=== PATIENT | male | born 1960 | race Caucasian/White ===

== ENCOUNTER 2017-01-02 05:18 | Day surgery (SDC) | payer MEDICAID ==
[~2017-01-02 05:18] MED LIST: ACETAMINOPHEN 1,000 MG/100 ML BTL IV ONE
[2017-01-02] MEDS ORDERED: ACETAMINOPHEN 1,000 MG/100 ML BTL IV ONE (06:00)
[2017-01-02] MEDS ORDERED: ROPIVACAINE HCL (NAROPIN) /PF 5MG/ML 20ML VIAL IV ONE ×2 (11:34→13:56)
[2017-01-02] MEDS ORDERED: DEXAMETHASONE 4 MG/ML 1ML VIAL IVP ONE (11:34)
[2017-01-02] MEDS ORDERED: PROPOFOL 10 MG/ML VIAL IV ONE (13:56)
[2017-01-02] MEDS ORDERED: FENTANYL PF 100MCG/2ML VIAL IV ONE (13:56)
[2017-01-02] MEDS ORDERED: MIDAZOLAM HCL 2MG/2ML VIAL IV ONE (13:56)
[2017-01-02] MEDS ORDERED: LIDOCAINE 2% MDV (20MG/ML) 20ML VIAL IV ONE (13:56)
--- NOTE | 2017-01-04 10:55 | Operative Note ---
DATE OF SURGERY: 01/02/2017 Surgeon: Jaquan Ness DO Referring physician: Jasmin Barney NP PREOPERATIVE DIAGNOSIS: Dequervain's stenosing tenosynovitis of the right wrist. POSTOPERATIVE DIAGNOSIS: Dequervain's stenosing tenosynovitis of the right wrist. OPERATION: Dequervain's fasciotomy of the right wrist using a 3.5 loupe magnification. Anesthesia: Assisted regional anesthetic. PROCEDURE: This 56-year-old male was taken to the operating room and placed in the supine position on the operating room table. Assisted regional anesthetic was used and the right upper extremity was elevated, prepped with Hibiclens, and draped in the usual sterile fashion. It was exsanguinated and the tourniquet inflated to 250 mmHg. A transfer incision was made 1 cm proximal to the tip of the radial styloid and the radial aspect of the right wrist. Dissection carried down through the skin and subcutaneous tissue. Hemostasis obtained with the electrocautery. The patient's superficial radial nerve was identified and retracted safely. The proximal edge of the first dorsal compartment was easily identified and excised from proximal to distal with the abductor longus under direct vision. The extensor brevis was seen to be in a separate septated compartment and this was also divided and freed. Marked swelling of the tenosynovium and tendon were present within the first dorsal compartment. Once this was decompressed, the thumb freely moved without any impingement. The tendons themselves, other than the swelling, otherwise appeared to be intact and normal. The wound was irrigated and the subcutaneous tissue closed with 4-0 Vicryl, the skin with a running 4-0 nylon suture. Sterile dressings were applied and the patient was taken to the recovery room in satisfactory condition. GROSS PATHOLOGY: This patient demonstrated marked thickening of the abductor longus of the right thumb. The extensor brevis seemed to be in a separate septated compartment. The patient tolerated the operative procedure well. LIZZETTE
== END 2017-01-02 08:00 | disposition home or self-care (01) ==
LOC: SUR 05:18
PROVIDERS: ATTEND Orthopaedic Surgery
DX: M65.4 Radial styloid tenosynovitis [de Quervain] (principal); J44.9 Chronic obstructive pulmonary disease, unspecified; F17.200 Nicotine dependence, unspecified, uncomplicated
CPT/HCPCS: 25020; 01810; 64450; J3010; J2795; 76942

== ENCOUNTER 2017-02-14 07:26 | Day surgery (SDC) | payer MEDICAID ==
[2017-02-14] MEDS ORDERED: ACETAMINOPHEN W/ CODEINE 300MG/30MG TABLET PO ONE (13:30)
[2017-02-14] MEDS ORDERED: FENTANYL PF 100MCG/2ML VIAL IV ONE ×2 (13:30)
[2017-02-14] MEDS ORDERED: LIDOCAINE 2% MDV (20MG/ML) 20ML VIAL IV ONE (13:40)
[2017-02-14] MEDS ORDERED: PROPOFOL 10 MG/ML VIAL IV ONE (13:40)
[2017-02-14] MEDS ORDERED: MEPERIDINE 50 MG/1 ML VIAL IVP ONE (13:40)
[2017-02-14] MEDS ORDERED: SEVOFLURANE 250 ML INH ONE (13:40)
--- NOTE | 2017-02-19 14:34 | Operative Note ---
DATE OF SURGERY: 02/14/2017 Surgeon: Jaquan Ness DO PREOPERATIVE DIAGNOSIS: Carpal tunnel syndrome of the right wrist. POSTOPERATIVE DIAGNOSIS: Carpal tunnel syndrome of the right wrist. OPERATION: Decompression of right median nerve at the wrist using 3.5 loop magnification. DESCRIPTION OF PROCEDURE: This 56-year-old male was taken to the operating room and placed in the supine position on the operating room table where general anesthesia was induced. The right upper extremity was elevated. It was prepped with Hibiclens and draped in the usual sterile fashion. It was exsanguinated and tourniquet inflated to 250 mmHg. A palmar incision was utilized following the hypothenar crease from the level of the base of the webspace of the thumb to the flexor crease of the wrist. Dissection was carried down through the skin and subcutaneous tissue. Hemostasis obtained with the electrocautery. Palmar fascia was divided in line with the skin incision to expose the flexor retinaculum. This was punctured, split to its proximal margin. With the contents of the carpal tunnel under direct vision, the transverse carpal ligament was transected along its ulnar border. The radial flap was raised to expose the entire median nerve under the transverse carpal ligament. The recurrent motor branch of the median nerve was seen to be normal. Some mild hyperemia of the nerve and mild hourglass deformity of the nerve also was identified. The tourniquet was released and hemostasis obtained with the electrocautery. The wound closed with interrupted 6-0 nylon suture. Sterile dressings were applied with plaster splint immobilization with the wrist in slight dorsiflexion and the thumb in an adducted position. The patient was then taken to the recovery room in satisfactory condition. LIZZETTE
== END 2017-02-14 10:35 | disposition home or self-care (01) ==
LOC: SUR 07:26
PROVIDERS: ATTEND Orthopaedic Surgery
DX: G56.01 Carpal tunnel syndrome, right upper limb (principal); J44.9 Chronic obstructive pulmonary disease, unspecified; F17.200 Nicotine dependence, unspecified, uncomplicated
CPT/HCPCS: 64721; 01810; J3010

== ENCOUNTER 2019-04-20 06:43 | Emergency (ER) | payer MEDICAID ==
[2019-04-20] MEDS ORDERED: 0.9 % SODIUM CHLORIDE 1,000 ML BAG IV ONE (07:05)
[2019-04-20] MEDS ORDERED: ACETAMINOPHEN 1,000 MG/100 ML BTL IVPB ONE (07:05)
[2019-04-20] MEDS ORDERED: METHYLPREDNISOLONE PF 125MG/VIAL IVP ONE (07:06)
--- NOTE | 2019-04-20 07:07 | Emergency Department Record ---
History of Present Illness - General Chief Complaint: Headache Migraine Stated Complaint: PAIN AND BURNING IN HEAD Time Seen by Provider: 04/20/19 07:05 Source: Patient Mode of Arrival: Ambulatory Limitations: No limitations - History of Present Illness Initial Comments: 58 yo male presents with a left sided headache since 5am yesterday morning. The headache is located on the left upper parietal area. The head is mild and did not start severe. The headache has present all day yesterday and still present when he woke up this morning. He points to a very specific area of location. He can push on an area in the scalp that is sore to touch and seems to make the pain worse. The headache itself is mild. No rash. No nausea, no vomiting, no dizziness, no neck pain, no weakness or coordination changes. This morning he noted an area of change in his vision. The area is "C" shaped in both eyes. The vision outside of the C is clear. The area of the C has small areas of blurriness or squiggly lines. No sense of vision loss. Inside the C is clear. It is equal in both eyes. 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 No double vision. PCP is Francisca Dial MD Complaint: Headache -: Hour(s) (26) Onset Description: Gradual, Awoke with symptoms Location: Left Severity: Moderate Severity scale (1-10): 8 Quality: Sharp Consistency: Constant Improves With: Nothing Worsens With: None Context: Other (awoke with the symptoms) Associated Symptoms: [place] Other Symptoms: Other Treatments Prior to Arrival: Other - Symptoms of Stroke Onset of Symptoms Date: 04/19/19 Onset of Symptoms Time: 05:00 Symptom Onset Unknown: Yes - Related Data Home Medications Medication Instructions Recorded Confirmed Last Taken Albuterol Sulfate [Proventil Hfa] 1 puff INH BID PRN 04/20/19 04/20/19 03/29/19 Previous Rx's Medication Instructions Recorded Methylprednisolone [Medrol Dose 4 mg PO DAILY #1 tab.ds.pk 04/20/19 Pack] Allergies Allergy/AdvReac Type Severity Reaction Status Date / Time lincomycin HCl Allergy Severe ANAPHYLAXIS Verified 04/20/19 06:57 [From Lincocin] Travel Screening - Travel/Exposure Within Last 30 Days Have you traveled within the last 30 days?: No - Travel Symptoms Symptom Screening: None Review of Systems Constitutional: Denies: Chills, Fever, Malaise, Weakness Eyes: Reports: Vision change. Denies: Eye discharge, Eye pain, Photophobia ENT: Denies: Congestion, Throat pain Respiratory: Denies: Cough, Dyspnea Cardiovascular: Denies: Chest pain, Palpitations, Syncope Endocrine: Denies: Fatigue Gastrointestinal: Denies: Abdominal pain, Diarrhea, Nausea, Vomiting Genitourinary: Denies: Dysuria, Frequency, Hematuria Musculoskeletal: Denies: Arthralgia, Back pain, Joint swelling, Myalgia Skin: Denies: Bruising, Change in color, Rash Neurological: Reports: Headache. Denies: Abnormal gait, Confusion, Numbness, Paresthesias, Seizure, Tingling, Tremors, Vertigo, Weakness Psychiatric: Denies: Anxiety Hematological/Lymphatic: Denies: Easy bleeding, Easy bruising Past Medical History - SOCIAL HISTORY Smoking Status: Current every day smoker Alcohol Use: None Drug Use: None - RESPIRATORY Hx Respiratory Disorders: Yes Hx Asthma: Yes Hx Bronchitis: No Hx COPD: Yes Hx Pneumonia: Yes Comment:: seasonal allergies; - CARDIOVASCULAR Hx Cardio Disorders: Yes Comment:: high cholestrol - NEURO Hx Neuro Disorders: Yes Hx of Neuromuscular Disease: Yes (Spearfish Palsy;) Comment:: crps (RSD) left arm mostly;/ bells palsy Left eye droop, left mouth droop - GI Hx GI Disorders: Yes Hx Hepatitis/Jaundice: Yes (hepatitis in 80's; was tested for A,B,C--all negative) Hx Ulcer: Yes - Hx Genitourinary Disorders: No - ENDOCRINE Hx Endocrine Disorders: No - MUSCULOSKELETAL Hx Musculoskeletal Disorders: Yes Hx Back Injury: Yes - PSYCH Hx Psych Problems: Yes Hx Behavior Problems: Yes Comment:: sarcastic wit - HEMATOLOGY/ONCOLOGY Hx Hematology/Oncology Disorders: No Family Medical History Any Significant Family History?: Yes *Cancer Comment: great uncle on maternal side Hx Diabetes: Father, Mother Hx Heart Disease: Mother Hx HTN: Mother Hx Resp Disorders: Father, Mother Hx Stroke: Grandparents Physical Exam - General General Appearance: Alert, Oriented x3, Cooperative, No acute distress Limitations: No limitations - Head Head exam: Atraumatic, Normal inspection Head exam detail: negative: Abrasion, Contusion, Hematoma, Laceration - Eye Eye exam: Normal appearance, PERRL, EOMI. negative: Conjunctival injection, Nystagmus, Periorbital swelling, Periorbital tenderness, Scleral icterus Pupils: Normal accommodation. negative: Irregular, Unequal - ENT ENT exam: Normal exam, Mucous membranes moist Ear exam: Normal external inspection Nasal Exam: Normal inspection Mouth exam: Normal external inspection - Neck Neck exam: Normal inspection - Respiratory Respiratory exam: Normal lung sounds bilaterally. negative: Respiratory distress - Cardiovascular Cardiovascular Exam: Regular rate, Normal rhythm, Normal heart sounds Peripheral Pulses: 2+: Radial (R), Radial (L) - GI/Abdominal GI/Abdominal exam: Soft. negative: Tenderness - Rectal Rectal exam: Deferred - exam: Deferred - Extremities Extremities exam: Normal inspection. negative: Tenderness - Back Back exam: Reports: Normal inspection - Neurological Neurological exam: Alert, Normal gait, Oriented X3, Reflexes normal. negative: Abnormal gait, Altered, CN II-XII intact (Mild left facial weakness that is chronic, stable at baseline) - Psychiatric Psychiatric exam: Normal affect, Normal mood. negative: Agitated, Anxious - Skin Skin exam: Dry, Intact, Normal color, Warm Course Vital Signs 04/20/19 06:49 Temperature 97.4 F L Pulse Rate 68 Respiratory 16 Rate Blood Pressure 140/83 Pulse Ox 100 - Reevaluation(s) Reevaluation #1: 04/20/19 08:04 The labs were reviewed The CBC was reviewed. WBC is 12.9 otherwise normal The BMP is normal The C-RP is normal ESR is normal 04/20/19 08:06 The patient reports the C sharp area in his vision resolved. The mild headache he had is gone The scalp tender pinpoint area is still reproducible and radiates to the occipital area. No rash. No swelling. The pain is surface related but normal Sed Rate and CRP. With normal inflammatory markers low suspicion for arteritis. Possible occipital neuralgia based on location. He is very comfortable with no pain unless he touches a certain spot We discussed a plan for home treatment, reasons to return to the ED for a recheck and close follow up with his PCP. The HCT is negative 04/20/19 08:14 04/20/19 08:36 The patient is doing very well and asymptomatic except the skin tenderness I SW his PCP Francisca Dial. She will see him in follow up tomorrow. She will schedule outpatient MRI as well Medical Decision Making - Lab Data Result diagrams: 04/20/19 07:12 04/20/19 07:12 Disposition Disposition: Discharge Clinical Impression: Scalp pain, Headache Disposition: Home, Self-Care Condition: (1) Good Instructions: Acute Headache (ED) Additional Instructions: Call your doctor for the next available follow up appointment Review this ER visit and the tests performed with your family doctor Return to the ER for a recheck if the symptoms return or any new concerns or questions Take the prescriptions provided as directed Call [phone] and ask for Fish to schedule tomorrow's appointment with Francisca Dial Prescriptions: Methylprednisolone [Medrol Dose Pack] 4 mg PO DAILY #1 tab.ds.pk Forms: Patient Portal Access Time of Disposition: 08:37 Quality - Quality Measures Quality Measures: N/A - Blood Pressure Screening Does Patient Have Any of the Following: No Blood Pressure Classification: Pre-Hypertensive BP Reading Systolic Measurement: 140 Diastolic Measurement: 83 Screening for High Blood Pressure: < Pre-Hypertensive BP, F/U Documented > [G8950] Pre-Hypertensive Follow-up Interventions: Referral to alternative/primary care provider.
[2019-04-20 07:20] LABS: ABSOLUTE NEUTROPHIL COUNT 6.81; BASO % 0.4 % (0-6); EOS % 1.2 % (0-6); HEMATOCRIT 49.1 % (42.0-52.0); HEMOGLOBIN 16.1 gm/dl (14.0-18.0); LYMPH % 38.9 % (16-45); MEAN CELL VOLUME 97.2 fl (81-97); MEAN CORPUSCULAR HEMOGLOBIN 31.9 pg (27-33); MEAN CORPUSCULAR HGB CONC 32.8 g/dl (32-36); MEAN PLATELET VOLUME 11.3 fl (7.4-10.4); MONO % 6.5 % (0-9); PLATELET COUNT 265 K/uL (130-400); RED BLOOD COUNT 5.05 M/uL (4.40-5.70); WHITE BLOOD COUNT W/O DIFF 12.9 K/uL (4.2-12.2)
[2019-04-20 07:30] LABS: BLOOD UREA NITROGEN 8 mg/dL (8-23); EST GLOMERULAR FILTRATION RATE > 60 mL/min
[2019-04-20 07:33] LABS: GLUCOSE,RANDOM 114 mg/dL (74-109)
[2019-04-20 07:36] LABS: C-REACTIVE PROTEIN 0.35 mg/dL (<0.5)
[2019-04-20 07:55] LABS: ERYTHROCYTE SEDIMENTATION RATE 4 mm/hr (0-20)
[2019-04-20] MEDS ORDERED: KETOROLAC 30 MG/ML VIAL IVP ONE (08:14)
== END 2019-04-20 09:01 | disposition home or self-care (01) ==
LOC: ER 06:43
DX: R51 Headache (principal); H53.8 Other visual disturbances; F17.210 Nicotine dependence, cigarettes, uncomplicated
CPT/HCPCS: 70450; 80048; 85025; 85651; 86140; 96361; 96365; 96375; 99284; J1885; J2930; J7030